=== PATIENT | male | born 1995 | race Caucasian/White ===

== ENCOUNTER 2017-12-28 22:41 | Emergency (ER) | payer MEDICAID ==
[2017-12-29 03:52] LABS: BASOPHIL % 0.6 % (0-2); PLATELET COUNT 219 x10^3mcL (130-400); RED CELL DISTRIBUTION WIDTH 13.1 % (11.5-14.5)
[2017-12-29 04:51] LABS: SODIUM SERUM 138 mmol/L (136-145)
[2017-12-29 04:52] LABS: CARBON DIOXIDE 28.9 mmol/L (21-32); CHLORIDE SERUM 102 mmol/L (98-107); GFR1 > 60 mL/min; GLUCOSE SERUM 101 mg/dL (74-106); POTASSIUM SERUM 4.4 mmol/L (3.5-5.1)
[2017-12-29 04:53] LABS: ALBUMIN 3.8 g/dL (3.4-5.0); CALCIUM 8.8 mg/dL (8.5-10.1); TOTAL PROTEIN, SERUM 7.3 g/dL (6.4-8.2)
[2017-12-29 04:54] LABS: ALKALINE PHOSPHATASE 49 U/L (46-116); ALT/SGPT 23 U/L (16-63); AST/SGOT 15 U/L (15-37); BILIRUBIN TOTAL 0.29 mg/dL (0.20-1.00); LIPASE 146 IU/L (73-393)
[2017-12-29 06:11] VITALS: BP 130/71
== END 2017-12-29 06:11 | disposition home or self-care (01) ==
LOC: ED 22:41
PROVIDERS: Emergency Medicine
DX: R10.9 Unspecified abdominal pain (principal); K62.5 Hemorrhage of anus and rectum; Z88.0 Allergy status to penicillin
CPT/HCPCS: 36415; J2405; Q9967

== ENCOUNTER 2018-10-22 13:15 | Emergency (ER) | payer OTHER ==
[~2018-10-22] VITALS: Ht 185.4 cm; Wt 104.3 kg
[2018-10-22 13:28] VITALS: Ht 185.4 cm; Wt 104.3 kg
[2018-10-22 16:04] VITALS: BP 151/64
== END 2018-10-22 16:04 | disposition home or self-care (01) ==
LOC: ED 13:15
DX: S51.811A Laceration without foreign body of right forearm, initial encounter (principal); S39.012A Strain of muscle, fascia and tendon of lower back, initial encounter; S09.8XXA Other specified injuries of head, initial encounter; S79.912A Unspecified injury of left hip, initial encounter; Z88.0 Allergy status to penicillin; V86.59XA Driver of other special all-terrain or other off-road motor vehicle injured in nontraffic accident, initial encounter; Y93.I9 Activity, other involving external motion; Y92.413 State road as the place of occurrence of the external cause; Y99.8 Other external cause status
CPT/HCPCS: 90715